=== PATIENT | male | born 1950 | race Caucasian/White ===

== ENCOUNTER 2019-02-20 16:30 | Inpatient (IN) | payer OTHER ==
[~2019-02-20] VITALS: Ht 190.5 cm; Wt 110.4 kg
[2019-02-20 16:31] VITALS: BP 146/78
[2019-02-20 17:20] LABS: BASOPHILS 0.9 % (0.0-2.0); EOSINOPHILS 0.6 % (0.0-3.0); HEMATOCRIT 45.7 % (42.0-52.0); HEMOGLOBIN 15.8 gm/dL (14.0-18.0); LYMPHOCYTES 25.5 % (24.0-44.0); MCH 33.5 pg (26.0-34.0); MCHC 34.5 g/dL (28.0-37.0); MCV 97.2 fL (80.0-100.0); MONOCYTES 9.8 % (1.0-8.0); PLATELET COUNT 234 thou/uL (150-400); POLYS 63.2 % (36.0-66.0); RBC 4.71 mil/uL (4.50-6.00); RDW 13.7 % (10.5-14.5); WBC 7.9 thou/uL (4.0-11.0)
[2019-02-20 17:25] LABS: ANION GAP 7 mmol/L (7-16); BUN 10 mg/dL (7-18); CALCIUM 9.3 mg/dL (8.5-10.1); CHLORIDE 101 mmol/L (98-107); CO2 29 mmol/L (21-32); CREATININE 0.9 mg/dL (0.7-1.3); GLUCOSE 120 mg/dL (74-106); SODIUM 137 mmol/L (136-145)
[2019-02-20 17:33] LABS: TROPONIN-I <0.06 ng/mL (<0.06)
[2019-02-20 19:19] VITALS: BP 168/109
--- NOTE | 2019-02-20 19:28 | NUR ---
food tray given at 1928
[2019-02-20 20:37] VITALS: BP 156/98
[2019-02-20 20:50] VITALS: BP 162/124
[2019-02-20 21:51] VITALS: BP 156/81
[2019-02-20] MEDS ORDERED: DILTIAZEM 24HR180 M1 PO (23:11)
[2019-02-20] MEDS ORDERED: ROSUVASTATIN CA20 MG PO (23:13)
[2019-02-20] MEDS ORDERED: ELIQUIS5 MG PO (23:14)
[2019-02-20] MEDS ORDERED: OMEPRAZOLE40 MG PO (23:14)
[2019-02-20] MEDS ORDERED: ESCITALOPRAM OX10 MG PO (23:15)
[2019-02-20] MEDS ORDERED: LISINOPRIL10 MG PO (23:15)
[2019-02-21] VITALS (7 sets, daily range): BP systolic 120–160; BP diastolic 57–90
[2019-02-21 04:46] LABS: BASOPHILS 0.5 % (0.0-2.0); EOSINOPHILS 1.3 % (0.0-3.0); HEMATOCRIT 43.4 % (42.0-52.0); HEMOGLOBIN 14.8 gm/dL (14.0-18.0); LYMPHOCYTES 35.4 % (24.0-44.0); MCH 33.4 pg (26.0-34.0); MCV 98.2 fL (80.0-100.0); MONOCYTES 10.8 % (1.0-8.0); PLATELET COUNT 223 thou/uL (150-400); RBC 4.42 mil/uL (4.50-6.00); RDW 13.7 % (10.5-14.5); WBC 7.7 thou/uL (4.0-11.0)
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
[2019-02-21 04:55] LABS: CALCIUM 8.6 mg/dL (8.5-10.1); MAGNESIUM 1.6 mg/dL (1.8-2.4); PHOSPHORUS 3.3 mg/dL (2.5-4.9); POTASSIUM 3.8 mmol/L (3.5-5.1)
--- NOTE | 2019-02-21 13:18 | EKG ---
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 : [id number] Requested By: Eric Guallpa Order Number: [id number] MD: Neno Kebede Measurements Intervals [place] Rate: 69 P: 34 OK: 164 QRS: 82 QRSD: 101 T: -13 QT: 396 QTc: 425 Interpretive Statements Sinus rhythm Early R-wave progression Borderline T abnormalities, inferior leads No previous ECG available for comparison Electronically Signed On 02-21-2019 13:18:30 OPERATIONS/DISPATCH by Neno Kebede [email or web address] <ELECTRONICALLY SIGNED> By: Neno Kebede MD, [facility] 02/21/19 1318 1631 30 Neno Kebede MD, FACC /EPI
--- NOTE | 2019-02-21 16:46 | NUR ---
RECEIVED PT'S CARE AROUND 0700; PT. ON BED RESTING WITH EYES CLOSING; ANSWER BACK TO NAME; NO C/O PAIN; DURING ASSESSMENT C/O DIZZINESS WHEN STANDING UP FROM BED; EDUCATED ABOUT TAKING BREAKS BETWEEN ACTIVITIES; CALLING FOR HELP BEFORE STANDING FROM BED; ST. UNDERSTANDING; AM MEDICATIONS GIVEN; THROUGH THE DAY PT. WATCHING TV; SR ON THE MONITOR; CONSULT TO CARDIOLOGY MADE; ASSESSMENT CHARGED; FOLLOWING POC; WILL PASS ON REPORT;
[2019-02-22 01:03] LABS: URINE BILIRUBIN NEGATIVE (Negative); URINE BLOOD NEGATIVE (Negative); URINE CLARITY CLEAR; URINE COLOR YELLOW; URINE GLUCOSE-RANDOM* NEGATIVE (Negative); URINE KETONES NEGATIVE (Negative); URINE LEUKOCYTES NEGATIVE (Negative); URINE NITRITE NEGATIVE (Negative); URINE PROTEIN (DIPSTICK) NEGATIVE (Negative); URINE SPECIFIC GRAVITY 1.015 (1.005-1.035); URINE UROBILINOGEN 0.2 E.U./dl (0.2-1.0)
[2019-02-22 04:09] VITALS: BP 149/90
[2019-02-22 04:51] LABS: ABSOLUTE NEUTROPHILS 3.3 thou/uL (1.4-8.2); BASOPHILS 0.7 % (0.0-2.0); EOSINOPHILS 1.5 % (0.0-3.0); HEMOGLOBIN 14.5 gm/dL (14.0-18.0); LYMPHOCYTES 42.5 % (24.0-44.0); MCH 33.4 pg (26.0-34.0); MCHC 33.7 g/dL (28.0-37.0); MCV 99.1 fL (80.0-100.0); MONOCYTES 9.7 % (1.0-8.0); PLATELET COUNT 226 thou/uL (150-400); POLYS 45.6 % (36.0-66.0); RBC 4.34 mil/uL (4.50-6.00); RDW 13.6 % (10.5-14.5); WBC 7.3 thou/uL (4.0-11.0)
[2019-02-22 05:11] LABS: CALCIUM 8.8 mg/dL (8.5-10.1); MAGNESIUM 1.6 mg/dL (1.8-2.4); PHOSPHORUS 3.1 mg/dL (2.5-4.9); POTASSIUM 3.7 mmol/L (3.5-5.1)
--- NOTE | 2019-02-22 05:19 | NUR ---
ASSESSMENT DOCUMENTED.PT BEEN RESTING IN NO ACUTE DISTRESS.A/OX4.VSS.ON 02 AT 2LITERS PNC,SATS ADEQUATE,VOIDING VIA URINAL.SR ON MONITOR.DENIES PAIN.PT STAYED IN BED THROUGH THE NOC.DENIES DIFFICULTIES BREATHING.NO CONCERNS VOICED AT THIS TIME.WILL CONT TO MONITOR PER POC.
[2019-02-22 08:00] VITALS: BP 142/94
[2019-02-22 12:00] VITALS: BP 153/84
--- NOTE | 2019-02-22 13:53 | NUR ---
patient admits with dizziness. 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 he uses a cane for ambulation as needed. 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 he has a s/o who can assist at dc if needed. His employment aware he is in hospital. Hes PCP is Dr Ku
[2019-02-22 16:00] VITALS: BP 132/87; BP 149/92; BP 157/96
--- NOTE | 2019-02-22 19:56 | NUR ---
RECEIVED PT'S CARE AROUND 0715; PT. ON BED; RESTING WITH EYES CLOSED; REGULAR CHEST RISING NOTICED; DURING ASSESSMENT NO C/O PAIN; D/C IV FLUIDS; AM MEDICATION GIVEN; EDUCATED ABOUT FALL PRECAUTIONS; REQUESTED TO TAKE A SHOWER; PHYSICIAN AWARE & CONSENT IT; DUE TO ULTRASOUND PT. NPO AFTER BREAKFAST; PROCEDURE SCHEDULE AROUND 1530; PT. NPO DURING THE AFTERNOON; PT. TOOK SHOWER AROUND 1600; PER PT. REPORT, ULTRASOUND WAS NOT PERFORMED DUE TO LACK OF SPACE IN ROOM; CONTACTED ULTRASOUND; NO ANSWER; VOICEMAIL LEFT; CLOSE 1800 TECH COMMUNICATES PT. WILL HAVE TO WAIT; PT. REQUESTED TO HAVE US IN THE MORNING DUE TO "I AM HUNGRY"; US SCHEDULED FOR 02/24/20 MORNING; PASSED ON REPORT; ASSESSMENT CHARGED; FOLLOWING POC;
[2019-02-22 23:27] VITALS: BP 157/85
--- NOTE | 2019-02-23 04:55 | NUR ---
ASSESSMENT DOCUMENTED.PT BEEN RESTING IN NO ACUTE DISTRESS.DENIES DYSPNEA,VSS.ON RA THROUGHOUT THE NOC,SATS ADEQUATE.MAGNESIUM REPLACED PER SHEET ROCK TAPER HELPER ORDERS.NSR ON MONITOR. USES A CANE TO AMBULATE TO BR.NPO AFTER MIDNOC FOR RENAL US THIS AM.ANTICIPATING DISCHARGE TO HOME TODAY.
[2019-02-23 05:37] VITALS: BP 150/84
[2019-02-23 09:13] VITALS: BP 140/95
[2019-02-23] MEDS ORDERED: CEFUROXIME500 MG PO (10:47)
[2019-02-23 12:00] VITALS: BP 158/99
--- NOTE | 2019-02-23 12:24 | NUR ---
RECEIVED PT'S CARE AROUND 0700; PT. ON BED;; AX04; NO C/O PAIN; REMAINED ABOUT NPO IN ORDER TO HAVE US; ST. UNDERSTANDING; PT. GONE TO US EARLY ON THE DAY; CARDIOLOGY GATE WATCHMAN AT THE BED SIDE AROUND 0740; NOTIFIED ABOUT NAUSEA THE DAY BEFORE AFTER HAVING BP MEDICATION; DURING ASSESSMENT NO C/O PAIN; ST. FEELING SOME DIZZINESS WHEN STANDING UP; NO C/O WHEN GOING TO US; AM MEDICATION GIVEN; EDUCATED ABOUT CALLING BEFORE STANDING FROM BED; ST. UNDERSTANDING; ASSESSMENT CHARGED; FOLLOWING PLAN OF CARE; MONITORING;
[2019-02-23 13:51] VITALS: BP 158/99
[2019-02-25 22:11] LABS: ADENOVIRUS Negative (Negative); INFLUENZA A Negative (Negative); INFLUENZA B Negative (Negative); METAPNEUMOVIRUS Negative (Negative); PARAINFLUENZA 1 Negative (Negative); PARAINFLUENZA 2 Negative (Negative); PARAINFLUENZA 3 Negative (Negative); RHINOVIRUS Negative (Negative); RSV A Negative (Negative); RSV B Negative (Negative)
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
== END 2019-02-23 15:30 | disposition home or self-care (01) | DRG 194 ==
LOC: ER 16:30 → EROBS 19:33 → 2N 19:33 → ENTRNSPT 02-23 15:11 → EDTRNSPTSTS 02-23 15:19 → 2N 02-23 15:30
PROVIDERS: Emergency Medicine; ADMIT Internal Medicine
DX: J18.9 Pneumonia, unspecified organism (principal); I24.9 Acute ischemic heart disease, unspecified; I48.0 Paroxysmal atrial fibrillation; I10 Essential (primary) hypertension; K21.9 Gastro-esophageal reflux disease without esophagitis; F32.9 Major depressive disorder, single episode, unspecified; E78.5 Hyperlipidemia, unspecified; I25.10 Atherosclerotic heart disease of native coronary artery without angina pectoris; N28.1 Cyst of kidney, acquired; E83.42 Hypomagnesemia; E66.3 Overweight; G47.33 Obstructive sleep apnea (adult) (pediatric); M19.90 Unspecified osteoarthritis, unspecified site; K76.0 Fatty (change of) liver, not elsewhere classified; Z86.19 Personal history of other infectious and parasitic diseases; Z79.01 Long term (current) use of anticoagulants; Z98.52 Vasectomy status; Z81.1 Family history of alcohol abuse and dependence; Z80.1 Family history of malignant neoplasm of trachea, bronchus and lung; Z80.8 Family history of malignant neoplasm of other organs or systems; Z87.891 Personal history of nicotine dependence; Z68.30 Body mass index [BMI] 30.0-30.9, adult; Z23 Encounter for immunization
CPT/HCPCS: 10081

== ENCOUNTER → 2019-04-16 | Outpatient (CLI) | payer OTHER ==
[~2019-04-16] MED LIST: CEFUROXIME500 MG PO; DILTIAZEM 24HR180 M1 PO; ELIQUIS5 MG PO; ESCITALOPRAM OX10 MG PO; LISINOPRIL10 MG PO; OMEPRAZOLE40 MG PO; ROSUVASTATIN CA20 MG PO
== END ==
LOC: SJCVC 11:29
DX: I21.9 Acute myocardial infarction, unspecified (principal); I45.10 Unspecified right bundle-branch block; R42 Dizziness and giddiness; I48.0 Paroxysmal atrial fibrillation; M15.3 Secondary multiple arthritis; I25.10 Atherosclerotic heart disease of native coronary artery without angina pectoris; I10 Essential (primary) hypertension; K21.9 Gastro-esophageal reflux disease without esophagitis; Z79.899 Other long term (current) drug therapy; Z87.891 Personal history of nicotine dependence

== ENCOUNTER 2019-09-07 22:14 | Emergency (ER) | payer OTHER ==
[~2019-09-07] VITALS: Ht 190.5 cm; Wt 104.3 kg
[2019-09-08 00:08] VITALS: BP 112/82
[2019-09-08] MEDS ORDERED: FLEXERIL PO (00:17)
== END 2019-09-08 00:46 | disposition home or self-care (01) ==
LOC: ER 22:14
DX: M25.562 Pain in left knee (principal); M54.2 Cervicalgia; M54.5 Low back pain; M62.830 Muscle spasm of back; I10 Essential (primary) hypertension; I48.91 Unspecified atrial fibrillation; Z79.899 Other long term (current) drug therapy; V89.2XXA Person injured in unspecified motor-vehicle accident, traffic, initial encounter; Y93.89 Activity, other specified; Y92.89 Other specified places as the place of occurrence of the external cause; Y99.8 Other external cause status

== ENCOUNTER → 2019-10-15 | Outpatient (CLI) | payer OTHER ==
[~2019-10-15] MED LIST changes: +FLEXERIL PO
== END ==
LOC: SJCVC 10:38
PROVIDERS: ATTEND Internal Medicine
DX: R94.31 Abnormal electrocardiogram [ECG] [EKG] (principal); I48.91 Unspecified atrial fibrillation; I10 Essential (primary) hypertension; E78.5 Hyperlipidemia, unspecified; N52.1 Erectile dysfunction due to diseases classified elsewhere

== ENCOUNTER → 2020-08-18 | Outpatient (CLI) | payer OTHER ==
--- NOTE | ~2020-08-18 | PFR/MVV ---
[facility] [place] [address] PULMONARY FUNCTION MVV/REPORT Name: LAURENT SCHULTZ Room #: [facility]#: [id number] Admission: 08/18/20 Attend Phys: Chevy Gordillo MD Discharge: Date of : 46 Report #: [id number] THIS REPORT FOR: //name// >> SPIROMETRY: (BTPS) Height: 73 in cm Weight: 249 lbs kg Exam Date: 08/18/20 PRE-RX POST-RX PRED BEST %PRED BEST %PRED %CHG FVC LITERS . 4.76 . 2.94 . 62 . 2.85 . 60 . -3 FEV1 LITERS . 3.15 . 2.29 . 73 . 2.24 . 71 . -2 FEV1/FVC % . 67 . 78 . 116 . 79 . 117 . 1 CTO67-62% L/Sec . 2.70 . 1.72 . 63 . 2.17 . 80 . 26 PEF L/SEC . 8.91 . 6.91 . 78 . 6.36 . 71 . -8 FEF50/FIF50 UNITLESS . 4.48 . 2.93 . 65 . 3.00 . 67 . 2 MVV L/Min . 135 . 60 . 44 f 1/Min . . . >> LUNG VOLUMES: (BTPS) PRE-RX POST-RX PRED AVG %PRED AVG %PRED %CHG VC Liters . 4.76 . 3.20 . 67 . . . TLC Liters . 7.20 . 4.86 . 68 . . . RV Liters . 2.78 . 1.66 . 60 . . . RV/TLC % . 41 . 34 . [address] . . . [address] Liters . . . . . . FRC N2 Liters . 3.70 . . . . . ERV Liters . 1.62 . 0.35 . 22 . . . IC Liters . 3.24 . 3.14 . 97 . . . >> DIFFUSION: DLCO ml/Min/mmHg . 26.2 . 29.7 . 113 . . . DL Obi ml/Min/mmHg . 26.2 . 29.7 . 113 . . . DLCO/VA ml/Min/mmHg . 3.51 . 5.95 . 170 . . . VA Liters . . 4.99 . . . . COMMENTS: COMMENTS: >> RESISTANCE: [facility] [address] [place] [address] PULMONARY FUNCTION MVV/REPORT Name: LAURENT SCHULTZ Room #: [facility]#: [id number] Admission: 08/18/20 Attend Phys: Chevy Gordillo MD Discharge: Date of : 46 Report #: [id number] PRE-RX PRED AVG %PRED Raw Total cmH20/L/Sec . . 5.88 . Raw Insp cmH20/L/Sec . . 6.65 . Raw Exp cmH20/L/Sec . . 6.81 . Raw cmH20/L/Sec . 1.20 . 5.15 . 429 Gaw L/Sec/cmH20 . 0.889 . 0.194 . 22 sRaw cmH20 Sec . 4.45 . 13.20 . 297 sGaw l/cmH20 Sec . 0.2215 . 0.076 . 34 Vtq Liters . . 2.56 . # = OUTSIDE 95% CONFIDENCE INTERVAL CALIBRATION: PRED: 3.00 ACTUAL: EXP 3.01 INSP 3.02 [facility] [place] [address] [id number] >> INTERPRETATION/IMPRESSION: DOC #: [id number] Carrington Jaeger M.D. DATE OF SERVICE: 08/18/2020 PULMONARY FUNCTION STUDIES ATTENDING PHYSICIAN: Dr. hCevy Gordillo. SPIROMETRY: FEV1 is 2.29 liters (73%), FVC is 2.94 (62%), FEV1/FVC ratio is 78%. There is no significant response to bronchodilator therapy. LUNG VOLUMES: Total lung capacity is 4.86 liters (68%), vital capacity is 3.20 liters (67%). Diffusing capacity is 113%. IMPRESSION: Pulmonary function studies are consistent with a moderate restrictive airflow defect. There is no significant response to bronchodilator therapy. Diffusing capacity is normal. Carrington WYLIE[facility]MARLEN[facility]APOLINAR [address] [address] PULMONARY FUNCTION MVV/REPORT Name: LAURENT SCHULTZ Room #: [facility]#: [id number] Admission: 08/18/20 Attend Phys: Chevy Gordillo MD Discharge: Date of : 46 Report #: [id number] By: Carrington Jaeger MD /nt
== END ==
LOC: PUL 08:36
PROVIDERS: ATTEND Internal Medicine
DX: R07.81 Pleurodynia (principal)

== ENCOUNTER 2020-11-21 17:39 | Emergency (ER) | payer OTHER ==
[~2020-11-21] VITALS: Ht 190.5 cm; Wt 64.0 kg
[2020-11-21 17:55] VITALS: BP 134/70
[2020-11-21] MEDS ORDERED: SILDENAFIL CIT100 MG PO (17:59)
[2020-11-21] MEDS ORDERED: HYDROCODON-ACE1 EAC7 PO (18:00)
[2020-11-21] MEDS ORDERED: LEXAPRO 10 MG T10 M2 PO (18:00)
[2020-11-21] MEDS ORDERED: DICLOFENAC SOD100 G1 TOP (18:00)
[2020-11-21] MEDS ORDERED: WARFARIN SODIUM4 MG PO (18:01)
[2020-11-21] MEDS ORDERED: RANEXA500 MG PO (18:01)
[2020-11-21] MEDS ORDERED: TESTOSTERO200 MG/1 M IM (18:01)
[2020-11-21] MEDS ORDERED: DOXYCYCLINE 10100 M2 PO (19:19)
[2020-11-21] MEDS ORDERED: TESSALON PERLE100 M1 PO (19:19)
== END 2020-11-21 19:45 | disposition home or self-care (01) ==
LOC: ER 17:39
DX: U07.1 COVID-19 (principal); R05 Cough; I10 Essential (primary) hypertension; I48.91 Unspecified atrial fibrillation; Z79.891 Long term (current) use of opiate analgesic; Z79.1 Long term (current) use of non-steroidal anti-inflammatories (NSAID); Z79.899 Other long term (current) drug therapy